=== PATIENT | female | born 1985 | race Caucasian/White ===

== ENCOUNTER 2017-04-06 14:18 | Emergency (ER) | payer OTHER ==
[~2017-04-06] VITALS: Ht 165.1 cm; Wt 68.2 kg
[2017-04-06 16:57] VITALS: BP 115/67
[2017-04-06] MEDS ORDERED: NORCO 325 MG-51 TA1 PO (17:02)
== END 2017-04-06 17:04 | disposition home or self-care (01) ==
LOC: ED 14:18
DX: S62.306A Unspecified fracture of fifth metacarpal bone, right hand, initial encounter for closed fracture (principal); W22.8XXA Striking against or struck by other objects, initial encounter
CPT/HCPCS: A4565

== ENCOUNTER 2024-04-16 20:11 | Emergency (ER) | payer OTHER ==
[~2024-04-16 20:11] MED LIST: NORCO 325 MG-51 TA1 PO; cefTRIAXone 1 G,Lidocaine 2.1 ML IM ONE
== END 2024-04-16 21:35 | disposition home or self-care (01) ==
LOC: ED 20:11
DX: H66.91 Otitis media, unspecified, right ear (principal)
CPT/HCPCS: J0696